=== PATIENT | male | born 1990 ===

== ENCOUNTER 2020-07-21 19:21 | Emergency (ER) | payer SELFPAY ==
--- NOTE | 2020-07-21 19:38 | PHYS DOC ---
Adult General Chief Complaint Chief Complaint: DEHYDRATION HPI HPI Patient is a 29-year-old male who presents to the emergency department via EMS clinical research tech transport with chief complaint of dehydration. During HPI patient states " where is a vending machine ", stated the patient I would like to do a physical examination for his reason for transport to the emergency department by ambulance. Patient states "oh.. I just needed a ride up this way.. Where is the front door". Patient states he does not want to be seen by a emergency room provider, patient left the emergency department with steady gait without incident. (NUSRAT CONNELLY APRN) Review of Systems Review of Systems 14 body systems of review of systems have been reviewed. See HPI for pertinent positives and negative responses, otherwise all other systems are negative, nonpertinent or noncontributory. (NUSRAT CONNELLY APRN) Physical Exam Physical Exam Constitutional: Well developed, well nourished, no acute distress, non-toxic appearance. Disheveled in appearance, in no apparent distress. HENT: Normocephalic, atraumatic. Eyes: conjunctiva normal, no discharge. Cardiovascular: No cyanosis appreciated. Lungs & Thorax: Patient in no respiratory distress, no audible adventitious lung sounds appreciated. Extremities: Patient moving all extremities appropriately, ambulated with steady gait. Neurologic: Alert and oriented X 3, normal motor function, normal sensory f unction, no focal deficits noted. Psychologic: Affect normal, judgement normal, mood normal. (NUSRAT CONNELLY APRN) EKG EKG [] (NUSRAT CONNELLY APRN) Radiology/Procedures Radiology/Procedures [] (NUSRAT CONNELLY APRN) Heart Score C/O Chest Pain: No Risk Factors: Risk Factors: DM, Current or recent (<one month) smoker, HTN, HLP, family history of CAD, obesity. Risk Scores: Risk Factors: DM, Current or recent (<one month) smoker, HTN, HLP, family history of CAD, obesity. (NUSRAT CONNELLY APRN) Course & Med Decision Making Course & Med Decision Making Pertinent Labs and Imaging studies reviewed. (See chart for details) 29-year-old male, presented to the emergency department via EMS for complaints of dehydration. During HPI and physical examination the patient stood up and refused examination and care from ED provider, patient left out the front ED exit with steady gait, patient was in no respiratory distress, patient was nontoxic in appearance, patient left the ED without incident. (NUSRAT CONNELLY APRN) Dragon Disclaimer Dragon Disclaimer This electronic medical record was generated, in whole or in part, using a voice recognition dictation system. (NUSRAT CONNELLY APRN) Attending Co-Sign The patient was seen and interviewed as well as examined at the bedside. The chart was reviewed. The case was discussed. Agree with the plan of care. (ELDER PLEITEZ DO) Departure Departure: Impression: Primary Impression: Eloped from emergency department Disposition: 07 LEFT AWOL/ELOPED Condition: GOOD NUSRAT CONNELLY APRN Jul 21, 2020 19:38 ELDER PLEITEZ DO Jul 22, 2020 04:01
== END 2020-07-21 19:28 | disposition left against medical advice (07) ==
LOC: ER 19:21
DX: E86.0 Dehydration (principal)
CPT/HCPCS: 99283